=== PATIENT | male | born 2005 | race Caucasian/White ===

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

== ENCOUNTER 2024-11-27 15:07 | Emergency (ER) | payer OTHER ==
[~2024-11-27] VITALS: Ht 170.2 cm; Wt 122.5 kg
[2024-11-27 15:19] VITALS: BP 128/56; TEMP 98.7; O2SAT 97
== END 2024-11-27 15:51 | disposition home or self-care (01) ==
LOC: ER 15:33
DX: B34.9 Viral infection, unspecified (principal); J02.9 Acute pharyngitis, unspecified; R50.9 Fever, unspecified; R09.81 Nasal congestion; R51.9 Headache, unspecified; Z90.49 Acquired absence of other specified parts of digestive tract

== ENCOUNTER 2025-01-15 12:44 | Emergency (ER) | payer OTHER | END 2025-01-15 13:38 | disposition left against medical advice (07) | LOC: ER 12:50 | DX: H92.09 Otalgia, unspecified ear (principal); Z53.21 Procedure and treatment not carried out due to patient leaving prior to being seen by health care provider ==